=== PATIENT | male | born 1965 | race Caucasian/White ===

== ENCOUNTER 2019-10-21 13:33 | Emergency (ER) | payer OTHER, SELFPAY ==
--- NOTE | ~2019-10-21 | CT_ITS ---
EXAMINATION: CT abdomen pelvis w con INDICATION: Abdominal pain and bloating TECHNIQUE: Computed tomographic images of the abdomen and pelvis were obtained after the administrati on of 100 cc of Omnipaque 350 intravenous contrast. The dose-length product (DLP) was 706.66 mGy-cm. Automated exposure control and iterative reconstruction technique were employed. COMPARISON: None available FINDINGS: There is a paucity of contrast due to injection malfunction. Minimal dependent atelectasis is present in the lung bases. The heart size is normal. There is a large volume of ascites. There are multiple heterogeneous masses in the left hepatic lobe, some of which appear to be confluent. One is a 5.9 x 3.8 cm cystic and soft tissue density mass in liver segment IV. Another is a 4.7 x 3.3 cm he terogeneous, subcapsular and partially exophytic mass in liver segment IV. Additional confluent krys s are too large to distinctly measure. There also appears to be a subtle mass in the right hepatic lo be. The liver surface is nodular. The spleen, pancreas, gallbladder, and adrenal glands are normal. T here is atrophy of the right kidney. The left kidney is unremarkable. No pathologically enlarged abdo eliot or pelvic lymph nodes are identified. There is no free intraperitoneal gas or evidence of bowel obstruction. IMPRESSION: 1. Cirrhosis with multiple liver masses, encompassing nearly the entire left hepatic lobe with possib le right hepatic lobe masses as well. Findings are concerning for hepatocellular carcinoma. Different ial could include other primary liver malignancy such as cholangiocarcinoma. 2. Large volume of ascites. Reviewed, dictated and finalized at location A. IMPRESSION: 1. Cirrhosis with multiple liver masses, encompassing nearly the entire left he patic lobe with possible right hepatic lobe masses as well. Findings are concer dulce maria for hepatocellular carcinoma. Differential could include other primary dani er malignancy such as cholangiocarcinoma. 2. Large volume of ascites.
--- NOTE | ~2019-10-21 | XR_ITS ---
EXAMINATION: XR chest 2V DATE: 10/21/2019 14:45 INDICATION: Shortness of breath TECHNIQUE: Frontal and lateral views of the chest are obtained COMPARISON: 02/17/2018 FINDINGS: There is mild atelectasis of the lung bases. There is no pleural effusion or pneumothorax. The cardiomediastinal silhouette is normal. There is mild thoracic spondylosis. IMPRESSION: 1. No acute cardiopulmonary abnormality. Reviewed, dictated and finalized at location A.
[2019-10-21 13:41] VITALS: BP 126/86; PULSE 103; RESP 18; TEMP 36.8; O2SAT 96
[2019-10-21 13:51] LABS: Basophils Absolute Auto 0.1 K/mm3 (0.0-0.1); Basophils Percent Auto 0.9 % (0.2-1.2); Eosinophils Absolute Auto 0.2 K/mm3 (0-0.3); Eosinophils Percent Auto 2.3 % (0-4.4); Hematocrit 41.4 % (42.0-52.0); Hemoglobin 14.3 g/dL (14.0-18.0); Immature Granulocyte Absolute 0.01 K/mm3 (0.00-0.031); Immature Granulocyte Percent A 0.1 % (0-0.5); Lymphocytes Absolute Auto 1.69 K/mm3 (0.9-3.2); Lymphocytes Percent Auto 17.6 % (18.3-44.2); Mean Corpuscular HGB Conc 34.5 g/dl (32-36); Mean Corpuscular Volume 104.3 fl (80-100); Monocytes Percent Auto 10.9 % (2.6-8.5); Neutrophils Absolute Auto 6.5 K/mm3 (1.3-6.7); Neutrophils Percent Auto 68.2 % (45.5-73.1); Platelet Count Result 201 k/mm3 (150-375); Red Blood Count 3.97 M/mm3 (4.6-6.20); Red Cell Distribution Width 13.7 % (11.5-14.5); White Blood Count 9.6 K/mm3 (4.5-10.0)
[2019-10-21 14:04] LABS: Alanine Aminotransferase 36 U/L (4-50); Albumin Level 4.3 g/dL (3.5-5.1); Alkaline Phosphatase 237 U/L (38-126); Aspartate Amino Transferase 130 U/L (17-59); Bilirubin,Total 3.9 mg/dL (0.2-1.3); Blood Urea Nitrogen 11 mg/dL (9-20); Calcium 9.7 mg/dL (8.4-10.2); Carbon Dioxide 23 mmol/L (22-30); Chloride 103 mmol/L (98-107); Estimated CRCL calculation 86 ml/min; Estimated Glomerular Filt Rate > 60; Glucose 112 mg/dL (75-110); Lipase 253 U/L (23-300); Sodium 136 mmol/L (137-145)
--- NOTE | 2019-10-21 14:04 | ECG_ITS ---
Measurements Intervals [place] Rate: 93 P: 33 AK: 182 QRS: 11 QRSD: 92 T: -9 QT: 363 QTc: 454 Interpretive Statements SINUS RHYTHM BORDERLINE ST-T WAVE ABNORMALITY- INFERIOR LEADS BASELINE WANDER- V3-V6 BORDERLINE ECG Electronically Signed On 10-21-2019 18:04:39 CDT by Dima Pfeiffer D.O.
--- NOTE | 2019-10-21 14:07 | ED.ABDPAIN ---
HPI - Abdominal Pain General Chief Complaint: Abdominal Pain <BA Forte Last Filed: 10/21/19 16:49> Stated Complaint: abdominal pain/bloating <BA Forte Last Filed: 10/21/19 16:49> Time Seen by Provider: 10/21/19 13:36 <BA Forte Last Filed: 10/21/19 16:49> Source: patient <BA Forte Last Filed: 10/21/19 16:49> Mode of arrival: ambulatory <BA Forte Last Filed: 10/21/19 16:49> Limitations: no limitations <BA Forte Last Filed: 10/21/19 16:49> History of Present Illness HPI narrative: This is a 54 year old male that presents to the ER for abdominal bloating worsening over the last week. Reports that his liver enzymes were elevated in the beginning of this year and was told to stop drinking. Reports he has tried to cut down and has not had anything to drink for the last couple of days. Reports he has been having some abdominal bloating intermittently over the last couple of months. Reports this improved with him cutting back on alcohol. Reports over the last week it has worsened again. Also notes some veins on his abdomen being distended. Reports decreased appetite and nausea. Reports he was placed on a PPI earlier this year for possible ulcer. <BA Forte Last Filed: 10/21/19 16:49> Related Data Home Medications: Home Medications Medication Instructions Recorded Confirmed amlodipine 10/21/19 folic acid 10/21/19 10/21/19 lisinopril 10/21/19 pantoprazole PO 10/21/19 <BA Forte Last Filed: 10/21/19 16:49> Allergies/Adverse Reactions: Allergies Allergy/AdvReac Type Severity Reaction Status Date / Time No Known Allergies Allergy Unknown Unverified 10/21/19 16:15 <BA Forte Last Filed: 10/21/19 16:49> Review of Systems Review of Systems: Narrative: CONSTITUTIONAL: Denies fever CARDIOVASCULAR: Denies chest pain and edema. RESPIRATORY: Reports dyspnea. GASTROINTESTINAL: Reports abdominal pain, nausea, diarrhea. Denies vomiting GENITOURINARY: Denies dysuria <Lisa Marquez PA-C - Last Filed: 10/21/19 16:49> All systems reviewed & are unremarkable except as noted in HPI and below <Lisa Marquez PA-C - Last Filed: 10/21/19 16:49> PMFSH Past Medical History Medical History: Medical History (Updated 10/21/19 @ 16:46 by Lisa Marquez PA-C) History of gastroesophageal reflux (GERD) History of hypertension <Lisa Marquez PA-C - Last Filed: 10/21/19 16:49> Social History Social History: Social History Gender identity (if verbalized by the patient): Male <Lisa Marquez PA-C - Last Filed: 10/21/19 16:49> Exam Narrative: Exam Narrative: GENERAL: Well-appearing, well-nourished, and in no acute distress. HEAD: Normocephalic, atraumatic. EYES: EOMI. CHEST: Clear to auscultation. No respiratory distress. No wheezes rales or rhonchi HEART: Regular rate and rhythm. No murmur heard. Normal peripheral pulses. ABDOMEN: Distended, nontender, normal active bowel sounds. EXTREMITIES: Normal range of motion. No edema. SKIN: Warm, dry, no rash. NEURO: No focal deficits. Alert and oriented x3. PSYCH: Normal mood and affect <Lisa Marquez PA-C - Last Filed: 10/21/19 16:49> Course Consultations Consultation #1: Spoke with Dr. Ching about patient and work-up who will make arrangements for patient for follow-up for further evaluation of liver masses. <Lisa Marquez PA-C - Last Filed: 10/21/19 16:49> Date: 10/21/19 <Lisa Marquez PA-C - Last Filed: 10/21/19 16:49> Time: 16:45 <Lisa Marquez PA-C - Last Filed: 10/21/19 16:49> Vital Signs Vital signs: Vital Signs Temperature 98.2 F 10/21/19 13:41 Pulse Rate 103 H 10/21/19 13:41 Respiratory Rate 18 10/21/19 13:41 Blood Pressure 126/86 10/21/19 13:41 Pulse Oximetry 96 10/21/19 13:41 Temperature 98.2 F
[2019-10-21 14:27] LABS: Ammonia 39 umol/L (9-30)
[2019-10-21 14:29] LABS: Acetaminophen < 10 ug/mL (10-30)
[2019-10-21 14:31] LABS: Bilirubin Direct 0.2 mg/dL (0-0.3); Bilirubin Indirect 2.4 mg/dL (0-1.1)
[2019-10-21 14:42] LABS: NT Pro B Type Natriuretic Pept 101 PG/ML (5-100)
[2019-10-21 14:47] LABS: INR 1.4; Prothrombin Time 16.7 Seconds (11.1-14.7)
[2019-10-21 14:48] LABS: Partial Thromboplastin Time 33.7 SECONDS (22.3-36.8)
[2019-10-21 15:03] LABS: Hepatitis B Surface Antigen Negative (Negative)
[2019-10-21 15:09] LABS: HAV RESULT Negative (Negative); Hepatitis B Core IgM Result Negative (Negative)
[2019-10-21 15:20] LABS: Hepatitis C Virus Antibody Negative (Negative)
[2019-10-21 16:13] VITALS: BP 121/75; PULSE 104; RESP 18; O2SAT 97
[2019-10-21 16:26] LABS: Add Urine Microscopic? YES; Appearance Urine Clear (Clear); Bilirubin Urine Negative (Negative); Blood Urine Negative (Negative); Color Urine Amber (Yellow); Glucose Urine UA Negative (Negative); Ketones Urine Trace mg/dL (Negative); Leukocyte Esterase Ur Negative LEU/UL (Negative); Mucus Urine Rare /lpf; Nitrate Urine Negative (Negative); Protein Urine Negative (Negative); RBC Urine 0-2 /hpf (0-2); Squamous Epithelial Cell Urine Few /hpf (Few); WBC Urine 0-3 /hpf
[2019-10-21 16:33] LABS: Specific Grav Ur > 1.060 (1.001-1.035)
== END 2019-10-21 17:20 | disposition home or self-care (01) ==
PROVIDERS: Physician Assistant; Emergency Provider Emergency Medicine; PCP Family Medicine
DX: R18.8 Other ascites (principal); K74.60 Unspecified cirrhosis of liver; D37.6 Neoplasm of uncertain behavior of liver, gallbladder and bile ducts; K21.9 Gastro-esophageal reflux disease without esophagitis; I10 Essential (primary) hypertension
CPT/HCPCS: 36415; 71046; 74177; 80053; 80074; 80307; 81001; 82140; 82248; 83690; 83880; 85025; 85610; 85730; 93005; 99284; Q9967

== ENCOUNTER 2019-10-31 11:24 | Outpatient (CLI) | payer OTHER, SELFPAY ==
--- NOTE | ~2019-10-31 | US_ITS ---
EXAMINATION: US paracentesis abd w/image DATE: 10/31/2019 13:42 INDICATION: Ascites. TECHNIQUE: The procedure and its risks, benefits, and alternatives were discussed with the patient. P otential risks discussed included bleeding and infection. The skin was prepped and draped in sterile fashion. 1% lidocaine was used for local anesthesia. Under ultrasound guidance, a 5 Fr catheter with trochar was advanced into the ascites in the left lower quadrant. Fluid was aspirated. The catheter w as removed, and a dressing was applied. There were no immediate complications. FINDINGS: Ultrasound images demonstrate ascites and the catheter within the fluid. IMPRESSION: 1. Successful ultrasound-guided paracentesis yielding 5000 mL of vaughn-colored fluid. Reviewed, dictated and finalized at location A.
[2019-10-31 11:57] LABS: Mean Platelet Volume 9.8 fl (7.4-10.4); Platelet Count Result 228 k/mm3 (150-375)
[2019-10-31 12:07] LABS: INR 1.3; Prothrombin Time 15.9 Seconds (11.1-14.7)
== END 2019-10-31 11:25 | disposition home or self-care (01) ==
PROVIDERS: PCP Family Medicine; Visit Provider Family Medicine
DX: K70.31 Alcoholic cirrhosis of liver with ascites (principal)
CPT/HCPCS: 36415; 49083; 85049; 85610